=== PATIENT | female | born 1955 | race African-American/Black ===

== ENCOUNTER 2018-11-23 10:06 | Inpatient (IN) | payer MEDICAID ==
[~2018-11-23] VITALS: Ht 160 cm; Wt 106.5 kg
[2018-11-23] MEDS ORDERED: SODIUM CHLORIDE 0.9% 1,000 ML IV ONE ×2 (10:30)
[2018-11-23] MEDS ORDERED: ONDANSETRON HCL 4 MG/2 ML VIAL IV ONE (10:30)
[2018-11-23] MEDS ORDERED: MORPHINE SULFATE 4 MG/ML SYR/VIAL IV ONE (10:30)
[2018-11-23 10:58] LABS: Basophils # (auto) 0.1 uL; Basophils % (auto) 0.4 % (0.0-2.0); Eosinophils # (auto) 0 uL; Hematocrit 39.4 % (36.0-46.0); Hemoglobin 13.1 g/dL (12.2-16.2); Lymphocytes # (auto) 1.6 uL; Mean Corpuscular Hemoglobin 28.4 pg (28.0-32.0); Mean Corpuscular Hgb Conc. 33.2 g/dL (32.0-36.0); Mean Corpuscular Volume 85.3 fL (80.0-100.0); Monocytes # (auto) 0.8 uL; Monocytes % (auto) 6.4 % (0.0-12.0); Neutrophils # (auto) 10.8 uL; Neutrophils % (auto) 81.2 % (37.0-80.0); Platelet Count (auto) 320 10^3/uL (140-450); Red Blood Cells 4.62 10^6/uL (4.0-5.20); Red Cell Distribution Width 13.9 % (11.8-14.3); White Blood Cell 13.3 10^3/uL (4.4-10.8)
[2018-11-23 11:16] LABS: Albumin 4.2 g/dL (3.4-5.0); Anion Gap 13 (5-15); Blood Urea Nitrogen 27 mg/dL (7-18); Calcium 9.4 mg/dL (8.5-10.1); Carbon Dioxide 22 mmol/L (21-32); Chloride 102 mmol/L (98-107); Glucose 149 mg/dL (74-106); Lipase 65 U/L (73-393); Sodium 137 mmol/L (136-145)
[2018-11-23 11:22] LABS: Alanine Aminotransferase 19 U/L (13-56); Alkaline Phosphatase 65 U/L (45-117); Aspartate Aminotransferase 23 U/L (15-37); BUN/Creatinine Ratio 25.2; Bilirubin, Total 1.2 mg/dL (0.2-1.0); GFR African American 67 mL/min; GFR Non-African American 55 mL/min; Total Protein 8.6 g/dL (6.4-8.2)
[2018-11-23 11:30] LABS: Potassium 2.9 mmol/L (3.5-5.1)
[2018-11-23] MEDS ORDERED: POTASSIUM EFFERVESENT TAB 25 MEQ PO ONE (11:45)
[2018-11-23] MEDS ORDERED: MORPHINE SULF INJ 2 MG/ML SYRINGE 1ML IV PRN (17:00)
[2018-11-23] MEDS ORDERED: SOD CHL 0.9%/ KCL 20MEQ 1,000 ML IV ONE (17:00)
[2018-11-23] MEDS ORDERED: POTASSIUM CHLORIDE 40 MEQ, LIDOCAINE 1% (LOCAL ANESTH.) 4 ML in SODIUM CHL 0.9% 100 ML IV ONE (17:00)
[2018-11-23] MEDS ORDERED: NITROGLYCERIN 0.4 MG SL TAB SL PRN (17:00)
[2018-11-23] MEDS ORDERED: metroNIDAZOLE 500MG/100ML 100 ML IV SCH (18:00)
--- NOTE | 2018-11-23 18:20 | NUR ---
MS admit from [place] admitted to tele/MS after SBAR received. Patient oriented to ERNIE GALEANA RN primary RN, unit, room, bed, and unit policies regarding patient care and visiting hours. Patient is awake, alert and oriented x4. Patient states abdominal pain 7/10. Will medicate per orders. Patient i son room air, respirations even and unlabored. Patient has 22g IV to left index finger and is running potassium at this time. Patient encouraged to call if she needs something. All questions and concerns addressed, patient verbalized understanding. Bed in low and locked position, call light within reach. Will continue to monitor Q1 and PRN.
--- NOTE | 2018-11-23 19:26 | NUR ---
Closing Note Report given to mini shifter RN. No signs or symptoms of distress noted at this time.
[2018-11-23 21:35] VITALS: BP 135/62
[2018-11-23] MEDS: METOCLOPRAMIDE HCL 5MG/ml INJ 2ml VIAL IV PRN (22:00)
[2018-11-23] MEDS: FAMOTIDINE (10MG/ML) 2ML VL IV SCH (22:00)
[2018-11-23] MEDS: metroNIDAZOLE 500MG/100ML 100 ML IV SCH (22:01)
[2018-11-23 22:37] LABS: Urine Bacteria FEW /hpf (None Seen); Urine Blood Negative /uL (Negative); Urine Hyaline Cast FEW /lpf (0 - 2); Urine Mucus FEW (None Seen); Urine Specific Gravity 1.033 (1.001-1.035); Urine WBC 11 /hpf (0 - 5)
[2018-11-24] MEDS: HYDROmorphone HCL 2 MG/ML VL IV PRN ×3 (04:29→18:37)
[2018-11-24] MEDS: metroNIDAZOLE 500MG/100ML 100 ML IV SCH ×3 (05:16→21:49)
[2018-11-24 05:24] VITALS: BP 106/55
[2018-11-24 05:48] LABS: Basophils # (auto) 0 uL; Basophils % (auto) 0.3 % (0.0-2.0); Eosinophils # (auto) 0 uL; Eosinophils % (auto) 0.3 % (0.0-7.0); Hematocrit 34.2 % (36.0-46.0); Hemoglobin 11.3 g/dL (12.2-16.2); Lymphocytes # (auto) 2.2 uL; Lymphocytes % (auto) 16.6 % (10.0-50.0); Mean Corpuscular Hemoglobin 28.5 pg (28.0-32.0); Mean Corpuscular Hgb Conc. 33.1 g/dL (32.0-36.0); Mean Corpuscular Volume 86.1 fL (80.0-100.0); Monocytes # (auto) 1.4 uL; Monocytes % (auto) 10.5 % (0.0-12.0); Neutrophils # (auto) 9.6 uL; Neutrophils % (auto) 72.3 % (37.0-80.0); Platelet Count (auto) 274 10^3/uL (140-450); Red Blood Cells 3.98 10^6/uL (4.0-5.20); Red Cell Distribution Width 14.1 % (11.8-14.3); White Blood Cell 13.3 10^3/uL (4.4-10.8)
[2018-11-24 05:55] LABS: Albumin 3.5 g/dL (3.4-5.0); Calcium 8.4 mg/dL (8.5-10.1); Potassium 3.3 mmol/L (3.5-5.1)
[2018-11-24 06:00] LABS: BUN/Creatinine Ratio 29.3; Bilirubin, Total 1.2 mg/dL (0.2-1.0); Total Protein 7.3 g/dL (6.4-8.2)
--- NOTE | 2018-11-24 07:30 | NUR ---
Opening Shift Note Assumed care of patient, awake and alert, oriented x 4 and verbally responsive. Respiratory even and unlabored. No S/S of distress/SOB. Pt c/o of abdominal pain 10/07, explained to patient that pain medication will due around 10.30 AM, patient verbalized understanding. Instructed on POC and to call for assist PRN, will continue to monitor for changes Q1hr and PRN.
[2018-11-24 09:00] VITALS: BP 125/52
[2018-11-24] MEDS: FAMOTIDINE (10MG/ML) 2ML VL IV SCH (10:22)
[2018-11-24] MEDS: METOCLOPRAMIDE HCL 5MG/ml INJ 2ml VIAL IV PRN ×2 (10:27→18:36)
[2018-11-24 13:00] VITALS: BP 123/67
[2018-11-24] MEDS ORDERED: POTASSIUM CHL 20MEQ/100ML 100 ML IV ONE (13:00)
[2018-11-24] MEDS: cefTRIAXone 1GM/50ML D5W 50 ML IV SCH (13:27)
--- NOTE | 2018-11-24 13:52 | NUR ---
Dr. Hatch at bedside discussed with patient for EGD, will perform tomorrow , patient agrees.
[2018-11-24] MEDS: PANTOPRAZOLE 40 MG TAB PO SCH ×2 (14:12→21:50)
[2018-11-24 17:00] VITALS: BP 112/68
--- NOTE | 2018-11-24 19:40 | NUR ---
Opening Shift Note Assumed care of patient, awake and alert. No S/S of distress/SOB or pain. Instructed on POC and to call for assist PRN. Bed in lowest locked position, call light within reach, side rails up x2. Will continue to monitor for changes Q1hr and PRN.
[2018-11-24 21:30] VITALS: BP 124/49
[2018-11-25 05:00] VITALS: BP 113/55
[2018-11-25] MEDS: metroNIDAZOLE 500MG/100ML 100 ML IV SCH ×2 (05:56→14:12)
[2018-11-25] MEDS: METOCLOPRAMIDE HCL 5MG/ml INJ 2ml VIAL IV PRN (05:56)
[2018-11-25 05:58] LABS: Basophils # (auto) 0.1 uL; Basophils % (auto) 0.6 % (0.0-2.0); Eosinophils # (auto) 0.3 uL; Eosinophils % (auto) 3.1 % (0.0-7.0); Hematocrit 36.3 % (36.0-46.0); Hemoglobin 12.1 g/dL (12.2-16.2); Lymphocytes # (auto) 3.6 uL; Lymphocytes % (auto) 32.3 % (10.0-50.0); Mean Corpuscular Hemoglobin 28.7 pg (28.0-32.0); Mean Corpuscular Hgb Conc. 33.2 g/dL (32.0-36.0); Mean Corpuscular Volume 86.4 fL (80.0-100.0); Monocytes # (auto) 0.9 uL; Monocytes % (auto) 7.9 % (0.0-12.0); Neutrophils # (auto) 6.2 uL; Neutrophils % (auto) 56.1 % (37.0-80.0); Platelet Count (auto) 263 10^3/uL (140-450); White Blood Cell 11.1 10^3/uL (4.4-10.8)
[2018-11-25 06:19] LABS: Albumin 3.6 g/dL (3.4-5.0); Calcium 8.7 mg/dL (8.5-10.1); Potassium 3.5 mmol/L (3.5-5.1)
[2018-11-25 06:23] LABS: INR 0.96 (0.9-1.15); Partial Thromboplastin Time 25.1 sec (23.64-32.05)
[2018-11-25 06:24] LABS: BUN/Creatinine Ratio 23.5; Bilirubin, Total 0.9 mg/dL (0.2-1.0); Total Protein 7.5 g/dL (6.4-8.2)
--- NOTE | 2018-11-25 07:30 | NUR ---
Opening Shift Note Assumed care of patient, awake and alert, oriented x 4 and verbally responsive. Respiratory even and unlabored. No S/S of distress/SOB or pain. Skin is warm and dry to touch. Continue NPO , patient tolerated well. Instructed on POC and to call for assist PRN, will continue to monitor for changes Q1hr and PRN.
[2018-11-25] MEDS: cefTRIAXone 1GM/50ML D5W 50 ML IV SCH (08:59)
[2018-11-25 09:00] VITALS: BP 124/62
[2018-11-25] MEDS ORDERED: FLUMAZENIL 0.1 MG/ML INJ 10ML MDV IV ONE (10:36)
[2018-11-25] MEDS ORDERED: NALOXONE HCL 0.4 MG/ML VIAL ONE (10:36)
[2018-11-25] MEDS ORDERED: LIDOCAINE VISCOUS 2% 15ML UD ONE (10:37)
[2018-11-25] MEDS ORDERED: SODIUM CHLORIDE LOCK 10 ML ONE (10:37)
[2018-11-25] MEDS ORDERED: diphenhdrAMINE HCL 50 MG/1 ML VL ONE (10:37)
[2018-11-25] MEDS: fentaNYL CITRATE 100 MCG/2 ML VL ONE ×2 (11:28→11:38)
[2018-11-25] MEDS: MIDAZOLAM HCL 5 MG/ML-1ML VIAL ONE ×2 (11:28→11:38)
--- NOTE | 2018-11-25 12:10 | NUR ---
Per Elvira ZAMANregistered pharmacy technician , patient can d/c from GI perspective by Dr. Hatch.
[2018-11-25] MEDS: PANTOPRAZOLE 40 MG TAB PO SCH (12:20)
[2018-11-25] MEDS ORDERED: METR500T PO (13:13)
[2018-11-25] MEDS ORDERED: SUCR1TAB PO (13:13)
[2018-11-25] MEDS ORDERED: PANT40T PO (13:13)
[2018-11-25 13:48] VITALS: BP 114/53
--- NOTE | 2018-11-25 16:02 | NUR ---
Discharge instructions given as ordered. Encourage to follow up with PMD (Follow up with Dr. bishop in 12/07/18 at 2.45 #[phone] Address : [address], [address], [place]. Follow up with Dr. Hatch Address : [address], [place], [place], [address] Ext : [phone] For Biopsy result. )as instructed. All questions and concerns addressed. Patient verbalized understanding. Medication reconciliation form completed and copy given to patient. IV removed with catheter intact, pressure dressing applied. Patient taken to vehicle via wheelchair with all personal belongings, accompanied by staff and family member. No distress noted at time of departure.
[2018-11-25] MEDS ORDERED: SUCRALFATE 1 GM TAB PO SCH (17:00)
== END 2018-11-25 16:00 | disposition home or self-care (01) | DRG 241 ==
LOC: EDBD 10:06 → ER 10:09 → OVERFLOW 10:10 → WEST WING 18:21
PROVIDERS: ADMIT Hospitalist; ATTEND Hospitalist
PROC: 0DB68ZX Excision of Stomach, Via Natural or Artificial Opening Endoscopic, Diagnostic (ICD-10-PCS; principal; 2018-11-25 11:26)
DX: K29.70 Gastritis, unspecified, without bleeding (principal); E66.01 Morbid (severe) obesity due to excess calories; D25.9 Leiomyoma of uterus, unspecified; K57.90 Diverticulosis of intestine, part unspecified, without perforation or abscess without bleeding; E86.0 Dehydration; E87.6 Hypokalemia; Z90.49 Acquired absence of other specified parts of digestive tract; K43.9 Ventral hernia without obstruction or gangrene; N39.0 Urinary tract infection, site not specified; K52.9 Noninfective gastroenteritis and colitis, unspecified; Z68.41 Body mass index [BMI] 40.0-44.9, adult; F17.210 Nicotine dependence, cigarettes, uncomplicated; I10 Essential (primary) hypertension; K21.0 Gastro-esophageal reflux disease with esophagitis; Z82.49 Family history of ischemic heart disease and other diseases of the circulatory system
CPT/HCPCS: 36415; 43239; 71045; 74176; 80053; 81001; 82150; 83690; 84484; 85025; 85610; 85730; 86850; 86900; 86901; 93005; 96374; 96375; G0378; J0696; J2001; J2250; J2405; J3480; J3490

== ENCOUNTER 2021-06-09 15:53 | Emergency (ER) | payer MEDICAID ==
[~2021-06-09] VITALS: Ht 160 cm; Wt 110.2 kg
[~2021-06-09 15:53] MED LIST: METR500T PO; PANT40T PO; SUCR1TAB PO
[2021-06-09] MEDS ORDERED: PROMETHAZINE HCL 25 MG/ML 1ML IM ONE (17:00)
[2021-06-09] MEDS ORDERED: HYDROmorphone HCL 2 MG/ML VL IM ONE (17:00)
[2021-06-09 17:10] VITALS: BP 156/101
[2021-06-09] MEDS ORDERED: PRED20TA2 PO (17:36)
== END 2021-06-09 17:56 | disposition home or self-care (01) ==
LOC: ER 15:53
DX: G89.29 Other chronic pain (principal); M54.50 Low back pain, unspecified; E66.01 Morbid (severe) obesity due to excess calories; F17.210 Nicotine dependence, cigarettes, uncomplicated; I10 Essential (primary) hypertension; K21.9 Gastro-esophageal reflux disease without esophagitis; Z90.49 Acquired absence of other specified parts of digestive tract; Z68.41 Body mass index [BMI] 40.0-44.9, adult
CPT/HCPCS: 96372; 99284; J1170; J2550

== ENCOUNTER 2024-09-27 06:44 | Inpatient (IN) | payer BC, MEDICAID ==
[~2024-09-27] VITALS: Ht 154.9 cm; Wt 92.2 kg
[~2024-09-27 06:44] MED LIST changes: +ATOR10TA PO; +BACL20TA PO; +CHOL500046 PO; +GABA-1250 PO; +HYDR-4072 PO; +HYDR25TA5 PO; +IBUP-1456 PO; +LISI20TA56 PO; +LORA-622 PO; +MELO15TA29 PO; -METR500T PO; +MORP30TA PO; -SUCR1TAB PO
[2024-09-27] MEDS: ACETAMINOPHEN IV 100 ML IV ONE (07:28)
[2024-09-27] MEDS: PREGABALIN CAPSULE 75 MG CAP ONE (07:28)
[2024-09-27] MEDS: ceFAZolin 2 GM/D5W50ml 50 ML IV ONE (07:28)
[2024-09-27] MEDS: CELECOXIB 100 MG CAP ONE (07:40)
[2024-09-27] MEDS: CEFEPIME 1GM/50ML 50 ML IV ONE (08:30)
[2024-09-27] MEDS: BUPIVACAINE HCL 50 ML ONE (08:30)
[2024-09-27] MEDS: TRANEXAMIC ACID 20 ML ONE (08:30)
[2024-09-27] MEDS: VANCOMYCIN HCL 1000 MG VL ONE (08:31)
[2024-09-27] MEDS: KETOROLAC TROMETH 30 MG/ML 1ML VIAL ONE (08:32)
[2024-09-27] MEDS: CELECOXIB 100 MG CAP PO ONE (09:30)
[2024-09-27] MEDS: ACETAMINOPHEN IV 1000 MG/100ML (10MG/ML) IV ONE ×2 (09:30→14:00)
[2024-09-27] MEDS: PREGABALIN CAPSULE 75 MG CAP PO ONE (09:30)
[2024-09-27] MEDS ORDERED: ONDANSETRON HCL 4 MG/2 ML VIAL IV PRN (09:45)
[2024-09-27] MEDS ORDERED: ceFAZolin 1GM/50ML 50 ML IV SCH (09:45)
[2024-09-27] MEDS ORDERED: NITROGLYCERIN 0.4 MG SL TAB SL PRN (09:45)
[2024-09-27] MEDS ORDERED: MORPHINE SULFATE INJ 2 MG/ml SYRG IV PRN (09:45)
[2024-09-27] MEDS ORDERED: MIDAZOLAM HCL 2MG/2ML 2ml VIAL (1mg/ml) ONE (09:50)
[2024-09-27] MEDS ORDERED: fentaNYL CITRATE 100 MCG/2 ML VL ONE (09:50)
[2024-09-27] MEDS ORDERED: PATIENTS OWN MEDICATION (Atorvastatin Calcium (Lipitor) 10 MG) PO SCH (10:00)
[2024-09-27] MEDS ORDERED: PROPOFOL 10 MG/ML 20 ML IV ONE (10:31)
[2024-09-27] MEDS ORDERED: MORPHINE SULF PF 5 MG/10 ML VIAL ONE (10:31)
[2024-09-27] MEDS ORDERED: ONDANSETRON HCL 4 MG/2 ML VIAL ONE (11:02)
[2024-09-27] MEDS ORDERED: METOCLOPRAMIDE HCL 5MG/ml INJ 2ml VIAL ONE (11:02)
[2024-09-27] MEDS: BUPIVACAINE 0.25% INJ 50ML VIAL ONE (12:00)
[2024-09-27] MEDS: VANCOMYCIN HCL 1000 MG VL IR ONE (12:00)
--- NOTE | 2024-09-27 12:09 | DVHOP2 ---
Discharge Orders Discharge Orders DISCHARGE WHEN CRITERIA MET DISCHARGE WHEN CRITERIA MET. Operative Rep- Outpatient Operative Report PRE-OP DIAGNOSIS: Right knee degenerative joint disease Right knee genu varum Right knee flexion contracture POST-OP DIAGNOSIS: Same [place] protocol followed: Yes ESTIMATED BLOOD LOSS: 50 cc PROCEDURE: Right total knee arthroplasty Computer navigation right total knee arthroplasty Application of negative pressure wound VAC SURGEON/ADJUNCT PROFESSOR OF [place] HISTORY: Edwardo DALE ANESTHESIA: Spinal ANESTHESIOLOGIST: CRISTINA INFORMED CONSENT: Informed Consent: Discussed all inherent risks, complications, and alternatives treatments with the patient. Patient has agreed to proceed with the procedure. I have reviewed all pre-operative assessments including Labs, EKGs, and radiographic images that has been performed. Patient is an appropriate candidate for the outpatient surgical center procedure. The patient was seen in the preoperative holding area by myself and Dr. Murphy we did have discussion with the patient regarding of the operative and nonoperative indications of the surgical procedure we did educate the patient based on the complexity of the surgical procedure then be ideal to have 2 orthopedic surgeons present for the surgical procedure of the patient understood based on the genu varum of the significant deformity on the medial tibial plateau that the patient would be beneficial of the have to Surgeons presents based on this deformity there was a chance that we may need augmentation was on the medial aspect and a significant other implants necessary for the surgical procedure. Based on these parameters the patient was educated on the limited range of motion of the knee and the based on the fact that the patient had significant osteoarthritis and and then genu varum deformity based on these parameters the patient was seen in the preoperative holding of the patient and the family members were at bedside and then were educated on the risks and benefits of surgical and nonsurgical treatment they understood the risks and benefits of surgical and nonsurgical treatment they understood the goals of the surgical treatment of the right lower extremity of the understood the complications associated with a total knee arthroplasty with malunion nonunion loosening of implants fractures based on a poor bone quality infection and all other complications associated with a total knee arthroplasty The patient was seen in the preoperative holding of the right lower extremity was marked the patient was brought to operative suite general anesthesia was then induced time-out to hospital protocol the right lower extremity range of motion was 0-55 degrees preoperatively the patient has significant of the range of motion loss based on these parameters the right lower extremity was prepped and draped in the standard fashion the incision was made through skin subcu tissue through muscle fascia down to bone once it was then done the medial release was then completed once it was then done a medial parapatellar arthrotomy was then created in the appropriate manner once it was then completed in the appropriate manner with a medial parapatellar arthrotomy on the proximal tibia cut with a 6 mm off the medial side based on the loss of the medial defect based on significant loss of the bone loss on the posteromedial aspect of the knee we took that off we still had a proximally 3 mm of bone loss present on the posteromedial aspect of the tibial plateau however I was concerned with the loss of the bone on the posteromedial aspect of the tibial plateau with the joint line then be inferiorly placed therefore 3 stopped at this level we did have adequate compression and adequate coverage of the base placed at this timeframe therefore through using computer navigation with a 4 degree slope the proximal tibia cut was then completed once it was then completed in the appropriate manner attention was turned to the distal femur we did try to use computer navigation for the distal tibia femur using computer data of the signal of the significant on area of the area of the flexion of the ortho line would not allow it to go to 3 of flexion therefore the creatinine continues an intramedullary guide followed by 5 degree cut with a distal femoral cut followed by the 4 1 sizing block was noted to be a size 6 narrow a 4 1 cutting block once I was then done there was significant posterior osteophytes were carefully removed with a curved curette and a flexible osteotomes with a curved osteotome followed by a curved curette removing of the all the osteophytes the ACL PCL and medial and lateral meniscus were carefully removed there was significant osteophytes noted on the posterior aspect once it was then done the 11 mm spacer block was balanced flexion-extension of the bone on the tibial plateau was significantly osteopenic in nature was significantly collapsed and therefore 3 decided to use the tibial stem a size C tibial base plate was punched and kicked along the medial 1/3 of the tibial tubercle size 6 femoral component was then prepped with a reaming once it was then done on in the the size 3 tibial base plate with the 10 x 110 tibial stem was then placed of the femoral component was then also cemented into the appropriate position with the 11 the mm polyp once we put the 11 mm poly we did note a see a small on separation of the medial femoral condyle that was noted we did ranged the knee several times to ensure adequate positioning and length intraoperatively did not opened in an eye gap therefore 3 did I injected 10 cc of serum and into the calf poor formation the help stabilize the fracture based on significant osteopenia noted there was there was significant osteopenia noted throughout the surgical procedure there was a concern with the quality of the bone. The serum it was to help stabilize the fracture and move the fracture stabilization of the appropriate manner once it was then done the knee was irrigated customized saline saline then injected with a Betadine irrigation vancomycin powder with 0 Vicryl 2-0 Monocryl on Vicryl and johnny and negative pressure wound VAC was then placed the patient will be monitored to determine of the nonweightbearing status of the patient. The adduction ear and eye were present we discussed the care based on these parameters the patient has significant complexity based on the lack of range of motion was significant in osteopenia noted throughout the surgical procedure therefore through a careful throughout the surgical procedure to ensure adequate positioning and placement of the area EDWARDO PRADHAN MD Sep 27, 2024 12:09
[2024-09-27 12:55] VITALS: PULSE 88; RESP 14; O2SAT 98
[2024-09-27] MEDS ORDERED: hydrALAZINE HCL 20 MG/ML VL IV PRN (13:15)
[2024-09-27] MEDS ORDERED: PATIENTS OWN MEDICATION (Baclofen 10 MG) PO SCH (14:00)
--- NOTE | 2024-09-27 14:21 | DVH ---
EXAM: XY R KNEE 3V XRAY CLINICAL INDICATION: S/P SURGERY TECHNIQUE: XY R KNEE 3V XRAY Comparison: None FINDINGS/IMPRESSION: Right total knee arthroplasty.
[2024-09-27] MEDS: HYDROmorphone HCL 2 MG/ML VL/or syr IV PRN ×2 (15:08→17:18)
[2024-09-27 16:16] VITALS: BP 134/86; PULSE 87; RESP 20; TEMP 98; O2SAT 96
[2024-09-27 17:00] VITALS: BP 90/51; PULSE 87; RESP 18; TEMP 98; O2SAT 96
[2024-09-27 20:00] VITALS: PULSE 76; RESP 18; O2SAT 97
[2024-09-27 21:00] VITALS: BP 111/63; PULSE 76; RESP 18; TEMP 98.3; O2SAT 97
[2024-09-27] MEDS: ATORVASTATIN 20 MG TAB PO SCH (21:34)
[2024-09-27] MEDS: SODIUM CHLOR 0.9% PF (SALINE LOCK) 10ML VIAL/SYR IV SCH (22:00)
[2024-09-27] MEDS: GABAPENTIN 300 MG CAP PO SCH (22:46)
[2024-09-27] MEDS: DOCUSATE SOD 100 MG CAP PO SCH (22:47)
[2024-09-27] MEDS: PANTOPRAZOLE 40 MG TAB PO SCH (22:47)
[2024-09-27] MEDS: BACLOFEN 10 MG TAB PO SCH (22:59)
[2024-09-28] VITALS (7 sets, daily range): BP systolic 109–130; BP diastolic 61–111; PULSE 81–92; RESP 14–18; TEMP 97.3–98.5; O2SAT 93–99
[2024-09-28] MEDS: KETOROLAC TROMETH 30 MG/ML 1ML VIAL IV PRN (00:13)
[2024-09-28] MEDS: LACTATED RINGER'S 1,000 ML IV SCH (05:45)
[2024-09-28 06:30] LABS: Hematocrit 27.0 % (36.0-46.0); Hemoglobin 9.1 g/dL (12.2-16.2)
[2024-09-28] MEDS: LISINOPRIL 20 MG TAB PO SCH (06:39)
[2024-09-28 06:54] LABS: Alanine Aminotransferase 14 U/L (7-40); Albumin 4.1 g/dL (3.2-4.8); Alkaline Phosphatase 48 U/L (46-116); BUN/Creatinine Ratio 19.1 (10.0-20.0); Bilirubin, Total 0.6 mg/dL (0.2-1.0); Calcium 9.0 mg/dL (8.7-10.4); Chloride 102 mmol/L (98-107); Potassium 4.0 mmol/L (3.5-5.1); Sodium 137 mmol/L (136-145); Total Protein 6.5 g/dL (5.7-8.2)
[2024-09-28 06:56] LABS: Anion Gap 13 (5-15); Carbon Dioxide 22 mmol/L (20-31)
[2024-09-28 06:57] LABS: Blood Urea Nitrogen 25 mg/dL (9-23); Glucose 121 mg/dL (74-106)
--- NOTE | 2024-09-28 08:01 | DVHPN2 ---
Progress Note Date Seen: Sep 28, 2024 Medical Necessity Reason Pt with a Central, PICC or Fol: No Subjective Patient reports: No new complaints Objective vital signs Vital Sign Date Time Temp Pulse Resp B/P (MAP) Pulse Ox O2 Delivery O2 Flow Rate FiO2 09/28/24 06:39 109/66 09/28/24 05:00 98.1 81 14 96 98.1 09/27/24 20:00 Room Air* 0 21 Total Intake and Output 09/27/24 09/27/24 09/28/24 15:00 23:00 07:00 Intake Total 100 ml 0 ml 400 ml Balance 100 ml 0 ml 400 ml medications Current Medications Medications Dose Ordered Sig/Elmer Route Start Time Stop Time Status Last Admin Dose Admin Gabapentin 300 mg BID PO 09/27/24 10:00 09/27/24 22:46 300 MG Hydrochlorothiazide 50 mg DAILY PO 09/27/24 10:00 Lisinopril 10 mg QAM PO 09/28/24 07:00 Loratadine 10 mg DAILY PO 09/27/24 10:00 Pantoprazole Sodium 40 mg BID PO 09/27/24 10:00 09/27/24 22:47 40 MG Patient Own Medication 10 mg DAILY PO 09/27/24 10:00 UNV Patient Own Medication 10 mg TID PO 09/27/24 14:00 UNV Lactated Ringer's 1,000 ml @ 100 mls/hr Q10H IV 09/27/24 09:45 Sodium Chloride 10 ml Q8HR IV 09/27/24 14:00 09/27/24 22:00 10 ML Hydromorphone HCl 1 mg Q2HP PRN IV 09/27/24 09:45 09/27/24 17:18 1 MG Ondansetron HCl 4 mg Q6HP PRN IV 09/27/24 09:45 Docusate Sodium 100 mg Q12HR PO 09/27/24 10:00 09/27/24 22:47 100 MG Nitroglycerin 0.4 mg Q5MINP PRN SL 09/27/24 09:45 Morphine Sulfate 2 mg Q30M PRN IV 09/27/24 09:45 Cefepime HCl 50 ml @ 12.5 mls/hr DAILY IV 09/27/24 10:00 Oxycodone HCl 20 mg Q12HR PO 09/27/24 10:00 Ketorolac Tromethamine 15 mg Q6HPRN PRN IV 09/27/24 09:45 10/02/24 09:44 09/28/24 00:13 15 MG Atorvastatin Calcium 10 mg HS PO 09/27/24 22:00 09/27/24 21:34 10 MG Baclofen 10 mg TID PO 09/27/24 14:00 09/27/24 22:59 10 MG Examination: GENERAL:Normal, MSK:Abnormal laboratory and microbiology Laboratory Tests 09/28/24 05:08 Test 09/28/24 05:08 Range/Units Serum Glucose 121 H 74-106 mg/dL Problem List/Assessment/Plan Problem List/Assessment/Plan 69 year old female who is s/p Right TKA POD 1 1. pain control 2. WBAT 3. Physical therapy 4. knee immobilizer at night when sleeping 5. CPM as tolerated 6. d/c planning for home tomorrow with home health and in home physical therapy Plan discussed with: Patient Date of Service: Sep 28, 2024 Billing Provider: MARIANA SOLIS MD Common Visit Codes: NOT BILLABLE MESERET IBANEZ NP Sep 28, 2024 08:01
[2024-09-28] MEDS: LORATADINE 10 MG TAB PO SCH (10:17)
[2024-09-28] MEDS: hydroCHLOROthiazide 25 MG TAB PO SCH (10:18)
[2024-09-28] MEDS: CEFEPIME 1GM/50ML 50 ML IV SCH (10:19)
[2024-09-28] MEDS: ONDANSETRON HCL 4 MG/2 ML VIAL IV ONE (11:11)
[2024-09-28] MEDS: METOCLOPRAMIDE HCL 5MG/ml INJ 2ml VIAL IV ONE (11:11)
[2024-09-28] MEDS: OXYCODONE W/ ACETAMINOPHEN 5/325MG TABLET PO PRN (18:10)
[2024-09-28] MEDS: ceFAZolin 1GM/50ML 50 ML IV SCH (23:00)
[2024-09-29] VITALS (8 sets, daily range): BP systolic 97–114; BP diastolic 48–70; PULSE 91–105; RESP 16–20; TEMP 36.4; O2SAT 95–100
--- NOTE | 2024-09-29 00:46 | DVHHP2 ---
JOHN PAUL ANDERSEN STATION MECHANIC APPRENTICE 09/29/24 0046: History of Present Illness Reason for Visit: knee surgury History of Present Illness 69-year-old female with past medical history of hypertension, hyperlipidemia, right knee degenerative joint disease, right knee genu varum prevents for elective surgical intervention of the right knee. At this time patient has undergone surgical intervention of the right knee and is admitted to medical floor per the surgical team. Internal Medicine has been consulted to assist with management of chronic diseases and discharge planning. Cardiovascular: HTN, hyperipidemia Smoke: No ALCOHOL: none Drugs: None Lives: with Family Review of Systems Constitutional: No: Fever, Chills, Sweats, Weakness, Malaise, Other Eyes: No: Pain, Vision change, Conjunctivae inflammation, Eyelid inflammation, Other, Redness ENT: No: Ear pain, Ear discharge, Nose pain, Nose discharge, Nose congestion, Mouth pain, Mouth swelling, Throat pain, Throat swelling, Other Respiratory: No: Cough, Dry, Shortness of breath, SOB with excertion, Wheezing, Hemoptysis, Pleuritic Pain, Sputum, Wheezing, Other Cardiovascular: No: Chest Pain, Palpitations, Orthopnea, Paroxysmal Noc. Dyspnea, Edema, Lt Headedness, Other Gastrointestinal: No: Nausea, Vomiting, Abdominal Pain, Diarrhea, Constipation, Melena, Hematochezia, Other Genitourinary: No Dysuria, No Frequency, No Incontinence, No Hematuria, No Retention, No Other Musculoskeletal: leg pain; No: other, neck pain, shoulder pain, arm pain, back pain, hand pain, foot pain Skin: No: Rash, Lesions, Jaundice, Bruising, Other Neurological: No: Weakness, Numbness, Incoordination, Change in speech, Confusion, Seizures, Other Allergies: Coded Allergies: NO KNOWN ALLERGIES (Unverified , 11/23/18) Medications Current Medications Medications Dose Ordered Sig/Elmer Route Start Time Stop Time Status Last Admin Dose Admin Gabapentin 300 mg BID PO 09/27/24 10:00 09/28/24 22:18 300 MG Hydrochlorothiazide 50 mg DAILY PO 09/27/24 10:00 09/28/24 10:18 50 MG Lisinopril 10 mg QAM PO 09/28/24 07:00 Loratadine 10 mg DAILY PO 09/27/24 10:00 09/28/24 10:17 10 MG Pantoprazole Sodium 40 mg BID PO 09/27/24 10:00 09/28/24 22:18 40 MG Patient Own Medication 10 mg DAILY PO 09/27/24 10:00 UNV Patient Own Medication 10 mg TID PO 09/27/24 14:00 UNV Lactated Ringer's 1,000 ml @ 100 mls/hr Q10H IV 09/27/24 09:45 09/28/24 15:45 100 MLS/HR Sodium Chloride 10 ml Q8HR IV 09/27/24 14:00 09/28/24 22:44 10 ML Hydromorphone HCl 1 mg Q2HP PRN IV 09/27/24 09:45 09/28/24 12:39 1 MG Ondansetron HCl 4 mg Q6HP PRN IV 09/27/24 09:45 Docusate Sodium 100 mg Q12HR PO 09/27/24 10:00 09/28/24 22:18 100 MG Nitroglycerin 0.4 mg Q5MINP PRN SL 09/27/24 09:45 Morphine Sulfate 2 mg Q30M PRN IV 09/27/24 09:45 Cefepime HCl 50 ml @ 12.5 mls/hr DAILY IV 09/27/24 10:00 09/28/24 10:19 12.5 MLS/HR Oxycodone HCl 20 mg Q12HR PO 09/27/24 10:00 09/28/24 22:18 20 MG Ketorolac Tromethamine 15 mg Q6HPRN PRN IV 09/27/24 09:45 10/02/24 09:44 09/28/24 08:38 15 MG Atorvastatin Calcium 10 mg HS PO 09/27/24 22:00 09/28/24 22:18 10 MG Baclofen 10 mg TID PO 09/27/24 14:00 09/28/24 23:51 10 MG Oxycodone/ Acetaminophen 1 tab Q4HP PRN PO 09/28/24 18:00 09/28/24 18:10 1 TAB Cefazolin Sodium 50 ml @ 100 mls/hr Q6HR IV 09/28/24 23:00 09/29/24 06:29 UNV Exam Vital Signs Vital Signs Date Time Temp Pulse Resp B/P (MAP) Pulse Ox O2 Delivery O2 Flow Rate FiO2 09/28/24 21:00 98.5 81 18 116/66 (83) 93 98.5 09/28/24 08:05 Room Air* 0 21 General Appearance: Alert, Oriented X3, Cooperative, mild distress HEENT: Atraumatic, PERRLA, EOMI Respiratory: Clear to auscultation, Normal air movement Cardiovascular: Regular rate, Normal S1, Normal S2 Abdominal: Normal bowel sounds, Soft, No tenderness Extremities: No edema, Normal pulses, Other (Right lower extremity and continuous motion device. Dressing CDI.) Neuro: Normal speech, Strength at 5/5 X4 ext Psych/Mental Status: Mental status NL, Mood NL Labs/Xrays Labs Test 09/28/24 05:08 Range/Units Hemoglobin 9.1 L 12.2-16.2 g/dL Hematocrit 27.0 L 36.0-46.0 % Sodium Level 137 136-145 mmol/L Potassium Level 4.0 3.5-5.1 mmol/L Chloride Level 102 98-107 mmol/L Carbon Dioxide Level 22 20-31 mmol/L Anion Gap 13 5-15 Blood Urea Nitrogen 25 H 9-23 mg/dL Creatinine 1.31 H 0.550-1.02 mg/dL Glomerular Filtration Rate Calc 45 >90 mL/min BUN/Creatinine Ratio 19.1 10.0-20.0 Serum Glucose 121 H 74-106 mg/dL Calcium Level 9.0 8.7-10.4 mg/dL Total Bilirubin 0.6 0.2-1.0 mg/dL Aspartate Amino Transferase (AST) 23 13-40 U/L Alanine Aminotransferase (ALT) 14 7-40 U/L Alkaline Phosphatase 48 46-116 U/L Total Protein 6.5 5.7-8.2 g/dL Albumin 4.1 3.2-4.8 g/dL Assessment/Plan Assessment/Plan Right knee degenerative joint disease Right knee, genu varum S/p total right knee arthroplasty Hx HTN Hx HLD Plan Patient admitted to medical per surgical team. Internal medicine has been consulted to assist with management of chronic diseases and discharge planning. Physical therapy, wound care per orthopedic surgical instructions Continue home medication As needed analgesia Case management consult Plan discussed with: Patient Date of Service: Sep 29, 2024 Billing Provider: AVERY TOLEDO MD Common Visit Codes: NOT BILLABLE AVERY TOLEDO MD 09/30/24 3166: Review of Systems Allergies: Coded Allergies: NO KNOWN ALLERGIES (Unverified , 11/23/18) Additional Comments Additional Comments Additional Comments Patient is seen and evaluated. Discussed with the nurse practitioner. Patient is seen evaluated and H&P done by STATION MECHANIC APPRENTICE. I agree with his evaluation, documentation, assessment and care plan as outlined. JOHN PAUL ANDERSEN NP Sep 29, 2024 00:46 AVERY TOLEDO MD Sep 30, 2024 15:45
[2024-09-29 06:26] LABS: Hematocrit 28.4 % (36.0-46.0); Hemoglobin 9.5 g/dL (12.2-16.2); Mean Corpuscular Hemoglobin 28.3 pg (28.0-32.0); Mean Corpuscular Volume 84.3 fL (80.0-100.0); Nucleated Red Blood Cells % 0.0 %
[2024-09-29 06:37] LABS: Chloride 101 mmol/L (98-107); Potassium 4.1 mmol/L (3.5-5.1); Sodium 136 mmol/L (136-145)
[2024-09-29 06:38] LABS: Anion Gap 9 (5-15); Calcium 9.0 mg/dL (8.7-10.4); Carbon Dioxide 26 mmol/L (20-31)
[2024-09-29 06:43] LABS: BUN/Creatinine Ratio 20.2 (10.0-20.0); Blood Urea Nitrogen 22 mg/dL (9-23); Glucose 109 mg/dL (74-106)
[2024-09-29] MEDS ORDERED: ASPI81TA28 PO (12:38)
--- NOTE | 2024-09-29 12:38 | DVHDS2 ---
Discharge Summary Date of Admission Sep 29, 2024 at 09:24 Date of Discharge: Sep 30, 2024 Labs/Diagnostic Data: Laboratory Results Test 09/29/24 04:47 09/28/24 05:08 White Blood Count 8.4 10^3/uL (4.4-10.8) Red Blood Count 3.37 10^6/uL (4.0-5.20) Hemoglobin 9.5 g/dL (12.2-16.2) Hematocrit 28.4 % (36.0-46.0) Mean Corpuscular Volume 84.3 fL (80.0-100.0) Mean Corpuscular Hemoglobin 28.3 pg (28.0-32.0) Mean Corpuscular Hemoglobin Concent 33.6 g/dL (32.0-36.0) Red Cell Distribution Width 13.5 % (11.8-14.3) Platelet Count 178 10^3/uL (140-450) Mean Platelet Volume 7.3 fL (6.9-10.8) Neutrophils (%) (Auto) 81.4 % (37.0-80.0) Lymphocytes (%) (Auto) 8.3 % (10.0-50.0) Monocytes (%) (Auto) 8.8 % (0.0-12.0) Eosinophils (%) (Auto) 1.3 % (0.0-7.0) Basophils (%) (Auto) 0.2 % (0.0-2.0) Neutrophils # (Auto) 6.8 10 ^3/uL (1.6-8.6) Lymphocytes # (Auto) 0.7 10 ^3/uL (0.4-5.4) Monocytes # (Auto) 0.7 10 ^3/uL (0-1.3) Eosinophils # (Auto) 0.1 10 ^3/uL (0-0.8) Basophils # (Auto) 0 10 ^3/uL (0-0.2) Nucleated Red Blood Cells 0.0 % Sodium Level 136 mmol/L (136-145) Potassium Level 4.1 mmol/L (3.5-5.1) Chloride Level 101 mmol/L (98-107) Carbon Dioxide Level 26 mmol/L (20-31) Anion Gap 9 (5-15) Blood Urea Nitrogen 22 mg/dL (9-23) Creatinine 1.09 mg/dL (0.550-1.02) Glomerular Filtration Rate Calc 56 mL/min (>90) BUN/Creatinine Ratio 20.2 (10.0-20.0) Serum Glucose 109 mg/dL (74-106) Calcium Level 9.0 mg/dL (8.7-10.4) Total Bilirubin 0.6 mg/dL (0.2-1.0) Aspartate Amino Transferase (AST) 23 U/L (13-40) Alanine Aminotransferase (ALT) 14 U/L (7-40) Alkaline Phosphatase 48 U/L (46-116) Total Protein 6.5 g/dL (5.7-8.2) Albumin 4.1 g/dL (3.2-4.8) Other Laboratory Tests 09/29/24 04:47 Brief Hx & Hospital Course: 69-year-old female with past medical history of hypertension, hyperlipidemia, right knee degenerative joint disease, right knee genu varum prevents for elective surgical intervention of the right knee. At this time patient has undergone surgical intervention of the right knee and is admitted to medical floor per the surgical team. Internal Medicine has been consulted to assist with management of chronic diseases and discharge planning. She is admitted and underwent knee surgery successfully and postop recovery was uneventful. Patient DME is arranged and home health is arranged and she has been discharged home in stable condition. She is to follow up with orthopedic surgeon in 1-2 weeks. Patient to resume other home medications as she is taking. Operations or Procedures Operative Rep- Outpatient Operative Report PRE-OP DIAGNOSIS: Right knee degenerative joint disease Right knee genu varum Right knee flexion contracture POST-OP DIAGNOSIS: Same [place] protocol followed: Yes ESTIMATED BLOOD LOSS: 50 cc PROCEDURE: Right total knee arthroplasty Computer navigation right total knee arthroplasty Application of negative pressure wound VAC SURGEON/BULK MAIL TECHNICIAN: Edwardo DALE ANESTHESIA: Spinal ANESTHESIOLOGIST: CRISTINA INFORMED CONSENT: Informed Consent: Discussed all inherent risks, complications, and alternatives treatments with the patient. Patient has agreed to proceed with the procedure. I have reviewed all pre-operative assessments including Labs, EKGs, and radiographic images that has been performed. Patient is an appropriate candidate for the outpatient surgical center procedure. The patient was seen in the preoperative holding area by myself and Dr. Murphy we did have discussion with the patient regarding of the operative and nonoperative indications of the surgical procedure we did educate the patient based on the complexity of the surgical procedure then be ideal to have 2 orthopedic surgeons present for the surgical procedure of the patient understood based on the genu varum of the significant deformity on the medial tibial plateau that the patient would be beneficial of the have to Surgeons presents based on this deformity there was a chance that we may need augmentation was on the medial aspect and a significant other implants necessary for the surgical procedure. Based on these parameters the patient was educated on the limited range of motion of the knee and the based on the fact that the patient had significant osteoarthritis and and then genu varum deformity based on these parameters the patient was seen in the preoperative holding of the patient and the family members were at bedside and then were educated on the risks and benefits of surgical and nonsurgical treatment they understood the risks and benefits of surgical and nonsurgical treatment they understood the goals of the surgical treatment of the right lower extremity of the understood the complications associated with a total knee arthroplasty with malunion nonunion loosening of implants fractures based on a poor bone quality infection and all other complications associated with a total knee arthroplasty The patient was seen in the preoperative holding of the right lower extremity was marked the patient was brought to operative suite general anesthesia was then induced time-out to hospital protocol the right lower extremity range of motion was 0-55 degrees preoperatively the patient has significant of the range of motion loss based on these parameters the right lower extremity was prepped and draped in the standard fashion the incision was made through skin subcu tissue through muscle fascia down to bone once it was then done the medial release was then completed once it was then done a medial parapatellar arthrotomy was then created in the appropriate manner once it was then completed in the appropriate manner with a medial parapatellar arthrotomy on the proximal tibia cut with a 6 mm off the medial side based on the loss of the medial defect based on significant loss of the bone loss on the posteromedial aspect of the knee we took that off we still had a proximally 3 mm of bone loss present on the posteromedial aspect of the tibial plateau however I was concerned with the loss of the bone on the posteromedial aspect of the tibial plateau with the joint line then be inferiorly placed therefore 3 stopped at this level we did have adequate compression and adequate coverage of the base placed at this timeframe therefore through using computer navigation with a 4 degree slope the proximal tibia cut was then completed once it was then completed in the appropriate manner attention was turned to the distal femur we did try to use computer navigation for the distal tibia femur using computer data of the signal of the significant on area of the area of the flexion of the ortho line would not allow it to go to 3 of flexion therefore the creatinine continues an intramedullary guide followed by 5 degree cut with a distal femoral cut followed by the 4 1 sizing block was noted to be a size 6 narrow a 4 1 cutting block once I was then done there was significant posterior osteophytes were carefully removed with a curved curette and a flexible osteotomes with a curved osteotome followed by a curved curette removing of the all the osteophytes the ACL PCL and medial and lateral meniscus were carefully removed there was significant osteophytes noted on the posterior aspect once it was then done the 11 mm spacer block was balanced flexion-extension of the bone on the tibial plateau was significantly osteopenic in nature was significantly collapsed and therefore 3 decided to use the tibial stem a size C tibial base plate was punched and kicked along the medial 1/3 of the tibial tubercle size 6 femoral component was then prepped with a reaming once it was then done on in the the size 3 tibial base plate with the 10 x 110 tibial stem was then placed of the femoral component was then also cemented into the appropriate position with the 11 the mm polyp once we put the 11 mm poly we did note a see a small on separation of the medial femoral condyle that was noted we did ranged the knee several times to ensure adequate positioning and length intraoperatively did not opened in an eye gap therefore 3 did I injected 10 cc of serum and into the calf poor formation the help stabilize the fracture based on significant osteopenia noted there was there was significant osteopenia noted throughout the surgical procedure there was a concern with the quality of the bone. The serum it was to help stabilize the fracture and move the fracture stabilization of the appropriate manner once it was then done the knee was irrigated customized saline saline then injected with a Betadine irrigation vancomycin powder with 0 Vicryl 2-0 Monocryl on Vicryl and johnny and negative pressure wound VAC was then placed the patient will be monitored to determine of the nonweightbearing status of the patient. The adduction ear and eye were present we discussed the care based on these parameters the patient has significant complexity based on the lack of range of motion was significant in osteopenia noted throughout the surgical procedure therefore through a careful throughout the surgical procedure to ensure adequate positioning and placement of the area EDWARDO PRADHAN MD Sep 27, 2024 12:09 DICTATED BY:EDWARDO PRADHAN MD DICTATED DATE/TIME:09/27/24 9046 Condition at Discharge: Stable Final Diagnosis/Problems List Status post right knee surgery, obesity with a BMI 36 Discharge Disposition: Home with Health Services Discharge Instruct/Medications Diet: Consistent carbohydrate, Cardiac 2g Na,low cholest Activity: No Restrictions, As Tolerated Activity comment: With a walker Follow Up/Referral: Orthopedic surgeon Dr. Jeffrey Key next week Medications: Home medications including pain medications as you were taking New Medications: Aspirin (Aspirin Ec) 81 Mg Tab 81 MG PO BID, #42 TAB Continued Medications: Atorvastatin Calcium (Lipitor) 10 Mg Tab 10 MG PO DAILY, TAB Baclofen (Baclofen) 20 Mg Tab 10 MG PO TID, TAB Cholecalciferol (D3 5000) 5,000 Unit Cap 5000 UNIT PO DAILY, CAP Gabapentin (Gabapentin) 300 Mg Cap 300 MG PO, CAP Hctz (Hydrochlorothiazide) 25 Mg Tab 50 MG PO, TAB Hydrocodone-Acetaminophen (Hydrocodone/Acetaminophen 10-325 mg) 1 Tab Tab 1 TAB PO PRN, TAB Ibuprofen (Ibuprofen) 800 Mg Tab 800 MG PO Q8HP, TAB Lisinopril (Lisinopril) 20 Mg Tab 10 MG PO QAM, TAB Loratadine (Claritin) 10 Mg Tab 10 MG PO DAILY, TAB Meloxicam (Meloxicam) 15 Mg Tab 15 MG PO DAILY, TAB Morphine Sulfate (Morphine Sulfate) 30 Mg Tab 30 MG PO, TAB Pantoprazole Sodium Sesquihydr (Pantoprazole Sodium) 40 Mg Tab 40 MG PO BID, #90 TAB Scheduled Aspirin (Aspirin Ec), 81 MG PO BID Atorvastatin Calcium (Lipitor), 10 MG PO DAILY, (Reported) Baclofen (Baclofen), 10 MG PO TID, (Reported) Cholecalciferol (D3 5000), 5,000 UNIT PO DAILY, (Reported) Hydrocodone-Acetaminophen (Hydrocodone/Acetaminophen 10-325 mg), 1 TAB PO PRN, (Reported) Ibuprofen (Ibuprofen), 800 MG PO Q8HP, (Reported) Lisinopril (Lisinopril), 10 MG PO QAM, (Reported) Loratadine (Claritin), 10 MG PO DAILY, (Reported) Meloxicam (Meloxicam), 15 MG PO DAILY, (Reported) Pantoprazole Sodium Sesquihydr (Pantoprazole Sodium), 40 MG PO BID Miscellaneous Medications Gabapentin (Gabapentin), 300 MG PO, (Reported) Hctz (Hydrochlorothiazide), 50 MG PO, (Reported) Morphine Sulfate (Morphine Sulfate), 30 MG PO, (Reported) Discharge Statement: "Patient was advised to return to the ER or call 911 if any headaches, dizziness, shortness of breath, chest pain, abdominal pain, bleeding, fevers, or worsening of medical condition. Patient was counseled about treatment plan, medications, possible side effects, patientverbalized understanding. All questions were answered to the best of my ability. This discharge took greater then 30 minutes in planning, reviewing documentation, counseling the patient, and discussing with other team members." ASSESSMENT ASSESSMENT Assessment Status post right knee surgery, obesity with a BMI 36 AVERY TOLEDO MD Sep 29, 2024 12:38
[2024-09-30 01:00] VITALS: BP 105/64; PULSE 84; RESP 20; TEMP 98; O2SAT 98
[2024-09-30 04:55] VITALS: BP 96/49; PULSE 76; RESP 19; TEMP 98.5; O2SAT 20
[2024-09-30 05:40] LABS: Hematocrit 26.5 % (36.0-46.0); Hemoglobin 9.0 g/dL (12.2-16.2)
[2024-09-30 09:00] VITALS: BP 96/69; PULSE 95; RESP 18; TEMP 97.9; O2SAT 97
[2024-09-30 12:39] VITALS: BP_SYST 108; BP_SYST 170; BP_DIAS 64; BP_DIAS 84; PULSE 79; PULSE 92; RESP 18; RESP 20; TEMP 97.7; TEMP 97.9; O2SAT 91; O2SAT 96
== END 2024-09-30 14:40 | disposition home health service (06) | DRG 470 ==
LOC: SUR 06:44 → OVERFLOW 09:35 → INTOOBSV 09:35 → OBSVTOIN 09:39 → WEST WING 16:04 → INTOOBSV 09-29 09:24 → OBSVTOIN 09-29 09:24 → UNDODISIN 09-30 14:40
PROVIDERS: ADMIT Hospitalist; ATTEND Hospitalist
PROC: 8E0YXBZ Computer Assisted Procedure of Lower Extremity (ICD-10-PCS; 2024-09-27)
PROC: 0SRC0J9 Replacement of Right Knee Joint with Synthetic Substitute, Cemented, Open Approach (ICD-10-PCS; principal; 2024-09-27 09:58)
DX: M17.11 Unilateral primary osteoarthritis, right knee (principal); E66.9 Obesity, unspecified; I10 Essential (primary) hypertension; Z68.36 Body mass index [BMI] 36.0-36.9, adult; M21.161 Varus deformity, not elsewhere classified, right knee; M85.80 Other specified disorders of bone density and structure, unspecified site; E78.5 Hyperlipidemia, unspecified
CPT/HCPCS: 36415; 73562; 80048; 80053; 85014; 85018; 85025; 86850; 86900; 86901; 97110; 97116; 97163; C1713; C1776; G0378; J0131; J1885; J2250; J2405; J2704; J3490